=== PATIENT | male | born 1985 | race African-American/Black ===

== ENCOUNTER 2017-11-24 09:17 | Emergency (ER) | payer SELFPAY ==
[~2017-11-24] VITALS: Ht 182.9 cm; Wt 63.5 kg
--- NOTE | 2017-11-24 09:38 | ED GI/GU/ABDOMINAL COMPLAINT ---
See Addendum History of Present Illness General Chief Complaint: General Adult Stated Complaint: PER SISTER "VOMITTING BLOOD SHAKING " Source: patient, family Exam Limitations: no limitations Vital Signs & Intake/Output Vital Signs & Intake/Output Vital Signs Date Time Temp Pulse Resp B/P B/P Pulse O2 O2 Flow FiO2 Mean Ox Delivery Rate 11/24 924 96.7 77 18 100/60 98 Room Air Allergies Coded Allergies: No Known Allergies (11/24/17) Reconcile Medications No Known Home Medications Triage Note: PT TO ER C/C HEMATEMESIS X 3 THIS AM. PT APPEARS PALE. STATES HE FEELS DIZZY WITH STANDING. DENIES PAIN OR FEVERS. NO SIGNIFICANT MEDICAL HX. DRINKS ETOH, NOT DAILY, LAST DRINK 2 DAYS AGO. Triage Nurses Notes Reviewed? yes HPI: Patient went to bed feeling fine last night. Patient woke up this morning feeling very nauseous. Patient states that he drank some water and then vomited that water up. Patient states the vomiting continued and then he started to notice bright red blood in his vomitus. Patient denies any abdominal pain stating that he just feels nauseous. There is no diarrhea. Patient has not had a bowel movement yet this morning. Patient denies any dysuria. There are no fevers or chills. Patient states that he had chicken and rice last night. Past History Travel History Traveled to [place] past 21 day No Medical History Any Pertinent Medical History? none Surgical History Surgical History: non-contributory Psychosocial History What is your primary language Liberian Tobacco Use: Current Daily Use Daily Tobacco Use Amount/Type: =< 4 Cigarettes daily ETOH Use: occasional use Illicit Drug Use: marijuana Family History Hx Contributory? No Review of Systems Review of Systems Constitutional: Reports: no symptoms. EENTM: Reports: no symptoms. Respiratory: Reports: no symptoms. Cardiovascular: Reports: no symptoms. GI: Reports: see HPI, nausea, vomiting. Genitourinary: Reports: no symptoms. Musculoskeletal: Reports: no symptoms. Skin: Reports: no symptoms. Neurological/Psychological: Reports: no symptoms. Hematologic/Endocrine: Reports: no symptoms. Immunologic/Allergic: Reports: no symptoms. All Other Systems: Reviewed and Negative Physical Exam Physical Exam General Appearance: well developed/nourished, alert, awake, anxious Head: atraumatic Eyes: Bilateral: PERRL, EOMI. Ears, Nose, Throat, Mouth: hearing grossly normal, DRY MM Neck: normal inspection, supple, full range of motion Respiratory: normal breath sounds, chest non-tender, no respiratory distress, lungs clear Cardiovascular: regular rate/rhythm, normal peripheral pulses Gastrointestinal: normal bowel sounds, soft, non-tender, no organomegaly Back: normal inspection, normal range of motion Extremities: normal range of motion Neurologic/Psych: no motor/sensory deficits, awake, alert, oriented x 3, normal gait, normal mood/affect Skin: intact, normal color, warm/dry Core Measures ACS in differential dx? No Sepsis Present: No Sepsis Focused Exam Completed? No Progress Differential Diagnosis: Jagruti-Yee TEAR dEHYDRATION Plan of Care: Orders Procedure Date/time Status LIPASE 11/24 936 Complete COMPREHENSIVE METABOLIC PANEL 11/24 936 Complete CBC WITHOUT DIFFERENTIAL 11/24 936 Complete AMYLASE 11/24 936 Complete EKG 11/25 927 Active Laboratory Tests 11/24/17 0948: Anion Gap 19 H, Estimated GFR > 60, BUN/Creatinine Ratio 20.0, Glucose 89, Calcium 9.6, Total Bilirubin 1.3, AST 38, ALT 29, Alkaline Phosphatase 99, Total Protein 7.4, Albumin 5.0, Globulin 2.4, Albumin/Globulin Ratio 2.1, Amylase 70, Lipase 56, CBC w Diff NO MAN DIFF REQ, RBC 4.48 L, MCV 91.8, MCH 31.0, MCHC 33.8, RDW 13.8, MPV 8.8, Gran % 83.3 H, Lymphocytes % 12.8 L, Monocytes % 3.5, Eosinophils % 0.2, Basophils % 0.2, Absolute Granulocytes 10.4 H, Absolute Lymphocytes 1.6, Absolute Monocytes 0.4, Absolute Eosinophils 0, Absolute Basophils 0 Initial ED EKG: none Departure Departure Disposition: HOME OR SELF CARE Condition: Stable Clinical Impression Primary Impression: Vomiting Additional Instructions: TAKE ZOFRAN ASNEEDED RETURN IFSYMPTOMS WORSENOR FOR ANY CONCERNS Departure Forms: Customer Survey General Discharge Information Prescriptions: Current Visit Scripts Ondansetron (Zofran Odt) 1 TAB SL TID PRN NAUSEA #10 TAB
[2017-11-24 09:57] LABS: ABSOLUTE BASOPHIL COUNT 0 /CUMM (0.0-0.2); ABSOLUTE EOSINOPHIL COUNT 0 /CUMM (0.0-0.7); ABSOLUTE GRANULOCYTE CT 10.4 /CUMM (1.4-6.5); ABSOLUTE LYMPH COUNT 1.6 /CUMM (1.2-3.4); ABSOLUTE MONOCYTE COUNT 0.4 /CUMM (0.10-0.60); BASOPHIL % 0.2 % (0.0-2.0); EOSINOPHIL % 0.2 % (0-5); HEMATOCRIT 41.1 % (42-52); MEAN CORPUSCULAR HGB CONC 33.8 G/DL (33.0-37.0); MEAN CORPUSCULAR VOLUME 91.8 FL (80.0-94.0); MEAN PLATELET VOLUME 8.8 FL (7.4-10.4); PLATELET COUNT 230 /CUMM (130-400); RBC DISTRIBUTION WIDTH 13.8 % (11.5-14.5); RED BLOOD CELL CT 4.48 /CUMM (4.70-6.10); WHITE BLOOD CELL COUNT 12.5 /CUMM (4.8-10.8)
[2017-11-24 11:03] LABS: GRANULOCYTE % 83.3 % (42.2-75.2)
[2017-11-24] MEDS ORDERED: ZOFRAN ODT4 M1 SL (11:08)
[2017-11-24 11:19] VITALS: BP 110/77
== END 2017-11-24 11:20 ==
LOC: ERH 09:17
PROVIDERS: Emergency Medicine
DX: R11.2 Nausea with vomiting, unspecified (principal)
CPT/HCPCS: 96361; 96374; 96375; J2405